=== PATIENT | male | born 2000 | race African-American/Black ===

== ENCOUNTER 2019-05-18 12:40 | Emergency (ER) | payer SELFPAY ==
[~2019-05-18] VITALS: Ht 185.4 cm; Wt 72.6 kg
[2019-05-18] MEDS ORDERED: LR 1000ml 1,000 ML IV SCH (12:45)
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
[2019-05-18] MEDS ORDERED: Lidocaine 1% Plain 30 ml INJ ONE ×2 (12:49→14:15)
[2019-05-18] MEDS ORDERED: Morphine Sulfate 4mg/ml Inj (IV USE ONLY) ONE (12:53)
[2019-05-18] MEDS ORDERED: Morphine Sulfate 4mg/ml Inj (IV USE ONLY) IVP ONE ×2 (13:00→13:30)
[2019-05-18] MEDS ORDERED: Omnipaue 350mg/ml 100ml vial INJ PRN (13:00)
[2019-05-18] MEDS ORDERED: ceFAZolin 1gm/50ml Premix 50 ML IV ONE (13:00)
[2019-05-18 13:10] LABS: BASOPHILS % (AUTO) 1.1 % (0.0-2.0); EOSINOPHILS % (AUTO) 3.9 % (0.0-3.0); HEMATOCRIT 43.3 % (42.0-52.0); HEMOGLOBIN 14.8 G/DL (14.2-18.0); LYMPHOCYTES % (AUTO) 25.1 % (20.0-45.0); MEAN CORPUSCULAR VOLUME 90 FL (80-99); MONOCYTES % (AUTO) 7.1 % (1.0-10.0); NEUTROPHILS % (AUTO) 62.8 % (45.0-75.0); PLATELET COUNT 273 K/UL (150-450); RED BLOOD COUNT 4.79 M/UL (4.70-6.10); RED CELL DISTRIBUTION WIDTH 11.1 % (11.6-14.8); WHITE BLOOD COUNT 11.2 K/UL (4.8-10.8)
--- NOTE | 2019-05-18 13:15 | NUR ---
ED Nurse Note: DR MARTINEZ AT THE BED SIDE FOR CHEST TUBE PLACEMENT.
[2019-05-18 13:18] VITALS: BP 121/82
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
[2019-05-18 13:21] LABS: ANION GAP 13 mmol/L (5-15); BLOOD UREA NITROGEN 14 mg/dL (7-18); CALCIUM 8.7 MG/DL (8.5-10.1); CARBON DIOXIDE 21 MMOL/L (21-32); CHLORIDE 106 MMOL/L (98-107); CREATININE 1.2 MG/DL (0.55-1.30); POTASSIUM 3.6 MMOL/L (3.5-5.1); SODIUM 140 MMOL/L (136-145)
--- NOTE | 2019-05-18 13:25 | NUR ---
ED Nurse Note: CHEST TUBE INSERTED ON RIGHT LATERAL RIB BY DR MARTINEZ AND CONNECTED TO LOW CONTINUOUS SUCTION SET AT 40MMHG.
--- NOTE | 2019-05-18 13:26 | NUR ---
ED Nurse Note: RADIOLOGY AT THE BED SIDE FOR CXR FOR CONFIRMATION OF CHEST TUBE PLACEMENT.
[2019-05-18 13:30] VITALS: BP 130/74
[2019-05-18 13:31] LABS: ALANINE AMINOTRANSFERASE 26 U/L (12-78); ALBUMIN 4.2 G/DL (3.4-5.0); ALBUMIN/GLOBULIN RATIO 1.1 (1.0-2.7); ALKALINE PHOSPHATASE 64 U/L (46-116); ASPARTATE AMINO TRANSFERASE 23 U/L (15-37); BILIRUBIN,TOTAL 1.1 MG/DL (0.2-1.0)
[2019-05-18 13:32] LABS: BILIRUBIN,DIRECT 0.2 MG/DL (0.0-0.3)
--- NOTE | 2019-05-18 14:00 | NUR ---
ED Nurse Note: [employer] AT THE BED SIDE.
[2019-05-18 14:03] VITALS: BP 133/78
--- NOTE | 2019-05-18 14:05 | NUR ---
ED Nurse Note: PT IS SPEAKING OVER HIS PHONE WITH NO DISTRESS ATTHIS TIME. CHEST TUBE STILL IN LOW CONTINUOUS SUCTION AND 20ML OF BLOOD DRAINED.
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
--- NOTE | 2019-05-18 14:27 | NUR ---
HAND-OFF: Report given to EMELINA WHALEY.
--- NOTE | 2019-05-18 14:28 | NUR ---
ED Nurse Note: Late entry. PT and report received from JUDD Harmon. PT VS BP 137/78; HR 74 showing SR; RR 16; 99% on simple mask at 15L. PT shows no S/S of respiratory distress, observed removing simple mask so he can talk on the phone, advised he place it back on due to desaturating. Will continue to monitor PT.
[2019-05-18 14:39] VITALS: BP 137/78
[2019-05-18 15:49] VITALS: BP 119/72
[2019-05-18] MEDS ORDERED: Morphine Sulfate 2mg/ml Inj(IV/IM USE ONLY) IVP ONE (17:15)
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
--- NOTE | 2019-05-19 12:54 | Diagnostic Imaging Report ---
Indication: Chest pain, status post chest tube insertion Technique: One view of the chest Comparison: none Findings: Interim placement of a right chest tube. A very small amount of gas is seen in the right chest wall. No gross pneumothorax. The lungs and pleural spaces are otherwise clear. Patient's chin obscures the upper mediastinum. Skin myrna are now seen over the right chest Impression: Satisfactory position of chest tube
== END 2019-05-18 17:15 | disposition short-term general hospital (02) ==
LOC: EMR 12:51
DX: S21.111A Laceration without foreign body of right front wall of thorax without penetration into thoracic cavity, initial encounter (principal); S27.0XXA Traumatic pneumothorax, initial encounter; S21.211A Laceration without foreign body of right back wall of thorax without penetration into thoracic cavity, initial encounter; W26.9XXA Contact with unspecified sharp object(s), initial encounter; Y92.9 Unspecified place or not applicable
CPT/HCPCS: 12002; 32556; 36415; 71045; 80053; 82248; 85025; 85610; 85730; 96365; 96367; 96375; 96376; 99291; J0690; J2001; J2270